=== PATIENT | female | born 1990 | race Caucasian/White ===

== ENCOUNTER 2022-09-08 14:31 | Outpatient (CLI) | payer OTHER, SELFPAY ==
[2022-09-08 17:02] LABS: INR 0.85 (0.91-1.10); Prothrombin Time 12.1 Seconds
[2022-09-08 17:03] LABS: Partial Thromboplastin Time* 31 Seconds (23-33)
[2022-09-08 22:13] LABS: Albumin* 4.6 g/dL (3.3-5.0); Chloride* 104 mmol/L (96-114); Potassium* 4.2 mmol/L (3.6-5.1); Sodium* 139 mmol/L (135-149)
[2022-09-08 22:16] LABS: Alanine Aminotransferase* 19 U/L (4-35); Alkaline Phosphatase* 93 U/L (40-150); Aspartate Amino Transferase* 20 U/L (12-35); Bilirubin Total* 0.6 mg/dL (0.1-1.5); Blood Urea Nitrogen* 15 mg/dL (5-24); Carbon Dioxide* 22 mmol/L (20-32); Creatinine* 0.8 mg/dL (0.5-1.5); Estimated Glomerular Filt Rate 100 ml/min; Glucose* 101 mg/dL (60-115); Total Protein* 7.5 g/dL (6.0-8.3)
[2022-09-08 22:17] LABS: Calcium* 9.3 mg/dL (8.4-10.6)
== END 2022-09-08 14:32 | disposition home or self-care (01) ==
PROVIDERS: PCP Family Medicine; Visit Provider Family Medicine
DX: Z01.818 Encounter for other preprocedural examination (principal); E66.9 Obesity, unspecified; F41.9 Anxiety disorder, unspecified
CPT/HCPCS: 80053; 85610; 85730